=== PATIENT | male | born 1940 | race American Indian/Alaskan Native ===

== ENCOUNTER 2018-07-23 11:41 | Outpatient (CLI) | payer MEDICARE ==
[2018-07-23 12:47] LABS: Blood Urea Nitrogen 18 mg/dL (9-20)
--- NOTE | 2018-07-23 16:33 | Cat Scan Report ---
FINAL REPORT EXAM: CT ABDOMEN PELVIS WO CON HISTORY: UMBILICAL HERNIA AND PAIN TECHNIQUE: Spiral CT scanning of the abdomen and pelvis. No oral or IV contrast administered. Multiplanar reformations. PRIORS: None. FINDINGS: Abdomen: Examination limited due to lack of contrast administration. Visualized lung bases show mild atelectatic change or scarring bilaterally. Mild cardiomegaly. Very small hiatal hernia. No radiopaque gallstones. Multiple hypodensities noted in the liver, largest measuring approximately 9 mm in the left lobe. Spleen grossly unremarkable. Pancreas grossly unremarkable. Multiple, rounded hypodensities noted in the bilateral kidneys, largest measuring approximately 4.4 cm in the right kidney. No apparent renal calcifications or significant hydronephrosis. Adrenal glands grossly unremarkable. Pelvis: Moderate right inguinal hernia containing fat and some nondilated small bowel loops. Smaller left inguinal hernia containing fat. Mild diastasis-type protrusion of anterior peritoneal margin in the umbilical region, with possible postsurgical change. Bowel grossly unremarkable, with oral contrast material in the distal small bowel and throughout the colon. Appendix is not confidently identified. No significant free peritoneal fluid or loculated fluid collection. Abdominal aorta non-aneurysmal. Nonspecific prostatic enlargement and probable TURP defect. Degenerative change in the lumbar spine. IMPRESSION: 1. Hepatic hypodensities possibly representing cysts versus hemangiomata, but nonspecific. Correlation with liver ultrasound may be confirmatory, as clinically indicated. 2. Bilateral renal hypodensities possibly representing cysts, but nonspecific. Correlation with renal ultrasound may be confirmatory, as clinically indicated. 3. Bilateral inguinal hernias containing fat bilaterally and some small bowel loops on the right. No evidence of mechanical bowel obstruction.
== END 2018-07-23 11:42 | disposition home or self-care (01) ==
LOC: CT 11:41
PROVIDERS: ATTEND Family Medicine
DX: K40.90 Unilateral inguinal hernia, without obstruction or gangrene, not specified as recurrent (principal); K44.9 Diaphragmatic hernia without obstruction or gangrene; M47.896 Other spondylosis, lumbar region; I51.7 Cardiomegaly
CPT/HCPCS: 36415; 74176; 82565; 84520